=== PATIENT | female | born 2000 | race Caucasian/White ===

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

== ENCOUNTER 2024-10-28 19:47 | Observation (INO) | payer BC ==
[2024-10-28] MEDS: Activated Charcoal/Water Susp 50 GM/240 ML Tube PO ONE (20:01)
[2024-10-28] MEDS ORDERED: Sodium Chloride 0.9% 10 ML Syringe FLUSH PRN ×2 (20:05→21:51)
[2024-10-28 20:20] LABS: BASOPHILS PERCENT AUTO 0.3 % (0.0-1.0); EOSINOPHILS PERCENT AUTO 2.5 % (1.0-3.0); HEMATOCRIT 40.5 % (37.0-47.0); HEMOGLOBIN 13.6 g/dL (12.0-16.0); LYMPHOCYTES PERCENT AUTO 49.4 % (20.5-50.1); MEAN CORPUSCULAR HEMOGLOBIN 30.6 pg (27.0-34.0); MEAN CORPUSCULAR HGB CONC 33.6 g/dL (33.0-35.0); MEAN CORPUSCULAR VOLUME 91.2 fL (80-100); MONOCYTES PERCENT AUTO 10.1 % (2-8); NEUTROPHILS PERCENT AUTO 37.7 % (42.2-75.2); PLATELET COUNT,PLT 291 10^3/uL (150-450); RED BLOOD CELL COUNT 4.44 10^6/uL (4.2-5.4); WHITE BLOOD CELL COUNT,WBC 7.1 10^3/uL (5.0-10.0)
[2024-10-28 20:49] LABS: A/G RATIO 1.3; ALANINE AMINOTRANSFERASE,ALT 22 U/L (14-59); ALKALINE PHOSPHATASE 78 U/L (46-116); ASPARTATE AMNIOTRANSFERASE,AST 16 U/L (15-37); BILIRUBIN TOTAL 0.9 mg/dL (0.2-1.0); BLOOD UREA NITROGEN,BUN 12 mg/dL (7-18); BUN/CREATININE RATIO 14.8 (No establ ref range); CALCIUM 8.9 mg/dL (8.5-10.1); CARBON DIOXIDE,CO2 23 mmol/L (21-32); CHLORIDE,CL 104 mmol/L (98-107); CREATININE 0.81 mg/dL (0.55-1.02); GLUCOSE RANDOM 108 mg/dL (70-99); MAGNESIUM 1.9 mg/dL (1.8-2.4); PROTEIN TOTAL,TP 7.1 g/dL (6.4-8.2); SODIUM,NA 137 mmol/L (136-145); TSH ULTRASENSITIVE 1.75 uIU/mL (0.36-3.74)
[2024-10-28 20:50] LABS: ESTIMATED GFR 105 mL/min (>=60); ETHANOL BLOOD MEDICAL < 3 mg/dL (0)
[2024-10-28 21:10] LABS: AMPHETAMINES,URINE NEGATIVE (NEGATIVE); BARBITURATES,URINE NEGATIVE (NEGATIVE); BENZODIAZEPINE,URINE NEGATIVE (NEGATIVE); MDMA (ECSTASY), URINE NEGATIVE (NEGATIVE); METHADONE,URINE NEGATIVE (NEGATIVE); METHAMPHETAMINES,URINE NEGATIVE (NEGATIVE); OPIATES,URINE NEGATIVE (NEGATIVE); OXYCODONE,URINE NEGATIVE (NEGATIVE); PHENCYCLIDINE,URINE NEGATIVE (NEGATIVE); TCA,URINE NEGATIVE (NEGATIVE)
[2024-10-28 21:11] LABS: APPEARANCE,URINE CLEAR (CLEAR); BILIRUBIN,URINE NEGATIVE (NEGATIVE); COLOR,URINE YELLOW (YELLOW); GLUCOSE,URINE NEGATIVE (NEGATIVE); KETONES,URINE NEGATIVE (NEGATIVE); LEUKOCYTE ESTERASE,URINE TRACE (NEGATIVE); NITRITE,URINE NEGATIVE (NEGATIVE); OCCULT BLOOD,URINE NEGATIVE (NEGATIVE); PH,URINE 6.5 (5.0-9.0); PROTEIN,URINE NEGATIVE (NEGATIVE); UROBILINOGEN,URINE 0.2 mg/dL (0.2-1.0)
[2024-10-28 21:22] LABS: BACTERIA,URINE FEW /HPF (0-FEW/HPF); EPITHELIAL CELLS,URINE FEW /HPF (NOT SEEN); MUCUS,URINE FEW /LPF (NOT SEEN); RBC,URINE NOT SEEN /HPF (0-5); WBC,URINE 0-5 /HPF (0-5/HPF)
[2024-10-28] MEDS: Sodium Chloride 0.9% 1,000 ML IV SCH (22:40)
[2024-10-28] MEDS: Enoxaparin 40 MG/0.4 ML Syringe SUBCUT SCH (23:24)
[2024-10-28] MEDS: Activated Charcoal/Water Susp 50 GM/240 ML Tube ONE (23:25)
[2024-10-29 06:31] LABS: BASOPHILS PERCENT AUTO 0.4 % (0.0-1.0); EOSINOPHILS PERCENT AUTO 1.9 % (1.0-3.0); MEAN CORPUSCULAR HGB CONC 33.3 g/dL (33.0-35.0); MEAN CORPUSCULAR VOLUME 92.9 fL (80-100); MONOCYTES PERCENT AUTO 10.1 % (2-8); NEUTROPHILS PERCENT AUTO 46.6 % (42.2-75.2); PLATELET COUNT,PLT 259 10^3/uL (150-450); WHITE BLOOD CELL COUNT,WBC 7.5 10^3/uL (5.0-10.0)
[2024-10-29 06:48] LABS: A/G RATIO 1.3; ALBUMIN 3.5 g/dL (3.4-5.0); ANION GAP 10.1 mEq/L (7-13); BILIRUBIN DIRECT 0.2 mg/dL (0.0-0.2); BILIRUBIN INDIRECT 0.8; CALCIUM 8.8 mg/dL (8.5-10.1); CREATININE 0.72 mg/dL (0.55-1.02); EST CRCL DRUG DOSING (CG) 105.83 mL/min; PHOSPHORUS 3.4 mg/dL (2.6-4.7); POTASSIUM,K 4.1 mmol/L (3.5-5.1); PROTEIN TOTAL,TP 6.1 g/dL (6.4-8.2)
[2024-10-29] MEDS: Sodium Chloride 0.9% 10 ML Syringe FLUSH SCH (09:53)
== END 2024-10-29 13:30 | disposition home or self-care (01) ==
LOC: DL.ED 19:47 → DL.MS 21:12
PROVIDERS: ADMIT Internal Medicine; ATTEND Internal Medicine
DX: T43.592A Poisoning by other antipsychotics and neuroleptics, intentional self-harm, initial encounter (principal); T43.222A Poisoning by selective serotonin reuptake inhibitors, intentional self-harm, initial encounter
CPT/HCPCS: 36415; 80048; 80053; 80076; 80143; 80179; 80305; 80307; 81001; 81025; 82550; 83735; 84100; 84443; 85025; 87086; 93005; A9270; J1650; J7030; 93010; 96372; 99223; 99239; 99285; G0378